=== PATIENT | male | born 1965 | race Caucasian/White ===

== ENCOUNTER 2022-05-28 11:52 | Emergency (ER) | payer SELFPAY ==
[2022-05-28 12:04] VITALS: BP 159/97; PULSE 111; RESP 20; TEMP 36.2; O2SAT 96
--- NOTE | 2022-05-28 12:19 | ED.GENADULT ---
HPI - General Adult General Chief complaint: Urogenital-Male Stated complaint: Possible UTI History of Present Illness HPI narrative: Mr Garcia is a pleasant 57 y/o male. PMHx HTN, Dyslipidemia, DM II. Presents to local [facility] today with acute complaints of urinary frequency, urgency, as well as dysuria when he voids for the past 48 hours. Client reports a burning sensation post void only, and has had to urinate more frequently through the day. He is concerned for UTI. He denies fever. No flank pain, abdominal pain, N/V. No hesitancy or initiation difficulty. No penile or testicular pain. No discharge or concerns for venereal disease exposure. He denies gross hematuria or clotting. He tells me he monitors his home glucose w/concurrent diabetes, and it has not been > 200, w/o significant fluctuations. Client is without additional acute c/o upon PE. Related Data Home Medications Medication Instructions Recorded Confirmed aspirin 81 mg tablet,delayed 81 mg PO DAILY 05/28/22 05/28/22 release (Adult Low Dose Aspirin) atorvastatin 40 mg tablet 40 mg DAILY 05/28/22 05/28/22 canagliflozin 300 mg tablet 300 mg DAILY 05/28/22 05/28/22 (Invokana) cyanocobalamin (vitamin B-12) 100 100 mcg PO DAILY 05/28/22 05/28/22 mcg tablet (Vitamin B-12) hydrochlorothiazide 12.5 mg capsule 12.5 mg DAILY 05/28/22 05/28/22 hydroxyzine HCl 25 mg tablet 25 mg DIRECTED 05/28/22 05/28/22 lisinopril 20 mg tablet 20 mg DAILY 05/28/22 05/28/22 metformin 1,000 mg tablet 1,000 mg BID 05/28/22 05/28/22 triamcinolone acetonide 0.1 % 1 applic topical DIRECTED 05/28/22 05/28/22 topical cream vitamin E 268 mg (400 unit) capsule 268 mg PO DAILY 05/28/22 05/28/22 Allergies Allergy/AdvReac Type Severity Reaction Status Date / Time No Known Allergies Allergy Verified 05/28/22 12:13 Review of Systems Review of Systems: CONSTITUTIONAL: Denies fever, chills, sweats. EYES: Denies visual changes, redness, discharge. ENT: Denies rhinorrhea, congestion, sore throat, otalgia. CARDIOVASCULAR: Denies chest pain, palpitations, edema. RESPIRATORY: Denies dyspnea, wheezing, cough GASTROINTESTINAL: Denies abdominal pain, nausea, vomiting, diarrhea. GENITOURINARY: + dysuria, urgency, frequency. No hematuria, abnormal discharge SKIN: Denies rash or itching. MUSCULOSKELETAL: Denies acute back pain, joint pain, or myalgia. NEUROLOGIC: Denies numbness, or focal weakness. PSYCHIATRIC: Denies anxiety or depression. Exam Narrative: GENERAL: This is a well-nourished, well-developed adult, in no apparent distress. HEAD: normocephalic. EARS: External ears normal. NOSE: External nose normal. THROAT: Mucous membranes moist. NECK: Neck supple. CARDIOVASCULAR: Mild tachycardia. Regular rhythm without murmurs, gallops, or rubs. RESPIRATORY: Clear to auscultation. GASTROINTESTINAL: Abdomen soft, non-tender, nondistended. Bowel sounds are active. No guarding. No signs of acute abdomen. No CVA tenderness. SKIN: warm, intact. NEURO: Alert, active, and age appropriate. Course Course Level of Care: Express Care Visit Vital Signs Vital signs: Vital Signs Temperature 36.2 C L 05/28/22 12:04 Pulse Rate 111 H 05/28/22 12:04 Respiratory Rate 05/28/22 12:04 Blood Pressure 159/97 H 05/28/22 12:04 Pulse Oximetry 96 05/28/22 12:04 Oxygen Delivery Room Air 05/28/22 12:04 Temperature 36.2 C L 05/28/22 12:04 Pulse Rate 111 H 05/28/22 12:04 Respiratory Rate 20 05/28/22 12:04 Blood Pressure 159/97 H 05/28/22 12:04 Pulse Oximetry 96 05/28/22 12:04 Oxygen Delivery Room Air 05/28/22 12:04 The patient has been informed that they may have pre-hypertension or Hypertension based on a BP reading in the clinic. It is recommended that the patient call the primary care provider listed on their discharge instructions or a physician of their choice as soon as possible (within 1-2week) to arrange follow up for further irving
== END 2022-05-28 12:22 | disposition home or self-care (01) ==
PROVIDERS: Emergency Provider Nurse Practitioner Adult Health
DX: N30.90 Cystitis, unspecified without hematuria (principal); I10 Essential (primary) hypertension; E78.5 Hyperlipidemia, unspecified; E11.9 Type 2 diabetes mellitus without complications; Z79.82 Long term (current) use of aspirin; Z79.84 Long term (current) use of oral hypoglycemic drugs
CPT/HCPCS: 81003; 87086; 87088; 87147; 99203; G0463